=== PATIENT | female | born 1995 | race Caucasian/White ===

== ENCOUNTER 2019-03-24 19:39 | Emergency (ER) | payer SELFPAY ==
[2019-03-24 19:40] VITALS: BP 130/92; PULSE 99; RESP 16; TEMP 36.8; O2SAT 100; BMI 25.1
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
[2019-03-24] MEDS: Diphth,Pertuss(Acell),Tet Vac 0.5 ML Vial IM (20:24)
[2019-03-24 20:45] VITALS: BP 123/83; PULSE 109; RESP 16; O2SAT 100
[2019-03-24 21:09] VITALS: BP 118/80; PULSE 100; RESP 16; O2SAT 99
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
--- NOTE | 2019-03-24 21:18 | ED.DEP ---
ED Disposition - Plan for ED Patient: Disposition: Home or Assisted Living Instructions: LACERATION, All Referrals: Care Physician,No Primary [Primary Care Provider] -
[2019-03-24 21:28] VITALS: BP 118/80; PULSE 107; RESP 16; O2SAT 100
== END 2019-03-24 21:53 | disposition home or self-care (01) ==
PROVIDERS: Emergency Provider Emergency Medicine
DX: S01.81XA Laceration without foreign body of other part of head, initial encounter (principal); V80.42XA Occupant of animal-drawn vehicle injured in collision with car, pick-up truck, van, heavy transport vehicle or bus, initial encounter; Y93.89 Activity, other specified; Y92.410 Unspecified street and highway as the place of occurrence of the external cause
CPT/HCPCS: 12015; 70450; 72125; 90715; 99284